=== PATIENT | male | born 1995 | race African-American/Black ===

== ENCOUNTER 2025-07-20 09:27 | Emergency (ER) | payer OTHER ==
[~2025-07-20] VITALS: Ht 170.2 cm; Wt 90.9 kg
[2025-07-20] MEDS: HYDROcodone-ACET 7.5/325MG TAB PO ONE (10:16)
[2025-07-20] MEDS: MORPHINE SULFATE 4 MG/ML SYR/VIAL IM ONE (11:49)
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
[2025-07-20] MEDS ORDERED: METH-1181 PO (13:22)
[2025-07-20] MEDS ORDERED: NAPR-746 PO (13:22)
[2025-07-20 13:29] VITALS: BP 142/76; PULSE 54; RESP 16; TEMP 98.7; O2SAT 98
== END 2025-07-20 13:37 | disposition home or self-care (01) ==
LOC: ER 09:27 → EDBD 09:27 → ER 13:37
DX: S09.90XA Unspecified injury of head, initial encounter (principal); M54.2 Cervicalgia; M54.6 Pain in thoracic spine; M54.50 Low back pain, unspecified; V89.2XXA Person injured in unspecified motor-vehicle accident, traffic, initial encounter; Y93.89 Activity, other specified; Y92.410 Unspecified street and highway as the place of occurrence of the external cause; Y99.8 Other external cause status
CPT/HCPCS: 70450; 72070; 72100; 72125; 96372; 99285; J2270